=== PATIENT | female | born 2005 | race Two or more races ===

== ENCOUNTER 2025-02-25 20:30 | Emergency (ER) | payer MEDICAID, SELFPAY ==
[2025-02-25 20:32] VITALS: BMI 21.9
--- NOTE | 2025-02-25 20:36 | EKG_ITS ---
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
[2025-02-25 20:53] VITALS: BP 127/82; PULSE 104; RESP 16; TEMP 36.6; O2SAT 96
--- NOTE | 2025-02-25 20:57 | PD.EDRME ---
Rapid Medical Screening Exam RME Arrival date/time: 02/25/25 20:30 Chief Complaint: Chest Pain Time Seen by Provider: 02/25/25 20:33 Vital signs: Vital Signs Temperature 97.9 F 02/25/25 20:53 Pulse Rate 104 H 02/25/25 20:53 Respiratory Rate 16 02/25/25 20:53 Blood Pressure 127/82 02/25/25 20:53 Pulse Oximetry (%) 96 02/25/25 20:53 Oxygen Delivery Method Room Air 02/25/25 20:53 E Narrative: Chest pain and shortness of breath since 1800 tonight. Patient believes symptoms related to new epilepsy medication, she doubled the dose 2 days ago. Reports nausea no vomiting. Takes OCP
--- NOTE | 2025-02-25 20:58 | XR_ITS ---
Examination: PA chest single view TECHNIQUE: Upright PA chest single view Date and time: February 25, 2025, 2106 hours INDICATIONS: Chest pain shortness of breath beginning 1800 hours tonight FINDINGS: Normal heart size Lungs are clear. The osseous structures are intact. IMPRESSION: No active disease.
[2025-02-25 21:17] LABS: Basophils % (Auto) 0 % (0-2.5); Eosinophils # (Auto) 0.1 Thou/mm3 (0.0-0.5); Eosinophils % (Auto) 1 % (0-10); Hematocrit 40.1 % (36.0-46.0); Hemoglobin 14.1 g/dL (12.0-16.0); Immature Granulocytes % (Auto) 0 % (0-0); Immature Granulocytes Auto 0.04 Thou/mm3 (0.00-0.00); Lymphocytes # (Auto) 1.2 Thou/mm3 (1.0-4.8); Lymphocytes % (Auto) 12 % (10-50); Mean Corpuscular HGB Conc 35.2 g/dl (31.0-37.0); Mean Corpuscular Hemoglobin 30.5 pg (25.0-35.0); Mean Corpuscular Volume 87 fL (80-100); Monocytes # (Auto) 0.7 Thou/mm3 (0.0-0.8); Monocytes % (Auto) 7 % (0-12); Neutrophils # (Auto) 7.9 Thou/mm3 (1.8-7.7); Neutrophils % (Auto) 80 % (37-80); Nucleated Red Blood Cell % 0 /100 WBC (0); Platelet Count 291 Thou/mm3 (140-440); RDW Standard Deviation 39.7 fL (36.4-46.3); Red Blood Count 4.63 Miln/mm3 (4.00-5.20); White Blood Count 9.9 Thou/mm3 (3.6-11.0)
[2025-02-25] MEDS: IBUPROFEN TAB 600 MG TABLET PO (21:30)
[2025-02-25 21:32] LABS: HCG,Qualitative Serum Negative
[2025-02-25 21:35] LABS: B-Type Natriuretic Peptide < 20 pg/mL (0-100)
[2025-02-25 21:36] LABS: Alanine Aminotransferase 11 U/L (10-49); Albumin, Serum 5.2 gm/dL (3.5-5.0); Albumin/Globulin Ratio 2.2 (1.2-2.2); Alkaline Phosphatase 81 U/L (46-116); Anion Gap 9 (7-16); Aspartate Amino Transferase 20 U/L (0-34); BUN/Creatinine Ratio 6 Ratio (12-20); Bilirubin,Total 0.5 mg/dL (0.3-1.2); Blood Urea Nitrogen 6 mg/dL (9-23); Calcium 9.7 mg/dL (8.3-10.6); Calcium (Corrected) 9.7 mg/dL (8.5-10.1); Carbon Dioxide 22.6 mMol/L (20.0-31.0); Chloride 104 mMol/L (98-107); Estimated Creatinine Clearance 80.1 mL/min (>60); Globulin 2.4 gm/dL (2.3-3.5); Glucose 108 mg/dL (74-106); Osmolality,Calculated 270 (275-295); Potassium 3.9 mMol/L (3.4-5.1); Sodium 136 mMol/L (136-145); Total Protein 7.6 gm/dL (5.7-8.2); Troponin I < 0.002 ng/mL (0.0-0.045); eGFR > 60 See Note
[2025-02-25 23:59] LABS: D-Dimer < 250 ng/mL (<600)
--- NOTE | 2025-02-26 00:10 | PD.EDCHEST ---
ED Chest Pain RME/HPI General Chief Complaint: Chest Pain Stated Complaint: I THINK I'M HAVING A ALLERGIC REACTION, CHEST PAIN Time Seen by Provider: 02/25/25 20:33 Source: patient, family, RN notes reviewed and old records reviewed Arrival date/time: 02/25/25 20:30 Mode of arrival: ambulatory Limitations: no limitations RME / HPI RME / HPI narrative: 20yof presents to ED for chest pain and shortness of breath since 1800 tonight. Patient believes symptoms are a reaction to her new epilepsy medication, she increased the dose 2 days ago. Reports nausea no vomiting. No fever, cough, headache, dizziness or syncope. 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 Denies recent long travel or recent surgery. Takes daily OCP. Related Data Home Medications ?Medication ?Instructions ?Recorded ?Confirmed No Known Home Medications 10/26/18 10/26/18 Allergies Allergy/AdvReac Type Severity Reaction Status Date / Time No Known Allergies Allergy Verified 02/25/25 20:32 Review of Systems Review of Systems Systems Reviewed: All systems reviewed, normal except as documented Constitutional Constitutional: Denies chills, Denies fever(s) and Denies headache(s) ENT Ears, Nose, Mouth, and Throat: Denies headache(s), Denies throat swelling, Denies tongue swelling and Denies vertigo Cardiovascular Cardiovascular: Reports chest pain, Reports dyspnea and Denies syncope Respiratory Respiratory: Reports dyspnea Gastrointestinal Gastrointestinal: Denies nausea and Denies vomiting Neurologic Neurologic: Denies headache(s), Denies syncope and Denies vertigo Allergic/Immunologic Allergic/Immunologic: Denies throat swelling and Denies tongue swelling Past Medical History Past Medical History NEUROLOGIC: Positive Epilepsy Surgical History OTHER SURGICAL HX: denies pshx Social History SMOKING STATUS: Never smoker SUBSTANCE USE: does not use ALCOHOL: Never ED Exam General Limitations: Present no limitations General appearance: Present alert and in no apparent distress Head Head exam: Present atraumatic and normocephalic Eye Eye exam: Present normal appearance, PERRL and EOMI ENT ENT exam: Present normal exam and mucous membranes moist Neck Neck exam: Present normal inspection and full ROM Chest Chest inspection: Present normal inspection and symmetric chest wall rise Cardiovascular Cardiovascular exam: Present normal rhythm and tachycardia (mild, HR 104) Abdominal Exam Abdominal exam: Present soft; Absent distention or tenderness Extremities Exam Extremities exam: Present normal inspection and full ROM; Absent pedal edema Neurological Exam Neurological exam: Present alert and oriented X3 Psychiatric Psychiatric exam: Present normal affect and normal mood Skin Skin exam: Present warm, dry, intact and normal color Course Quality Measures none Orders Category Date Time Status EKG (ED ONLY) *Do not use* NOW Care 02/25/25 20:36 Completed CXR [XR chest 1V] Stat Exams 02/25/25 20:58 Completed EKG (ED Only) Stat Exams 02/25/25 20:36 Draft BNP [B-Type Natriuretic Peptide] Stat Lab 02/25/25 21:03 Completed CBC Stat Lab 02/25/25 21:03 Completed CMP [Comprehensive Metabolic Panel] Stat Lab 02/25/25 21:03 Completed D-Dimer Stat Lab 02/25/25 21:03 Completed HCG,Qualitative Serum Stat Lab 02/25/25 21:03 Completed Troponin I Stat Lab 02/25/25 21:03 Completed Ibuprofen Tab [Motrin Tab] Med 02/25/25 21:09 Discontinued 600 mg PO X1 ONE Vital Signs Vital signs: Vital Signs Temperature 97.9 F 02/25/25 20:53 Pulse Rate 104 H 02/25/25 20:53 Respiratory Rate 16 02/25/25 20:53 Blood Pressure 127/82 02/25/25 20:53 Pulse Oximetry (%) 96 02/25/25 20:53 Oxygen Delivery Method Room Air 02/25/25 20:53 PROCEDURES: EKG Interpretation #1: Date of EK02/25/25 Rate: 107 Interpretation: Interpreted by me EKG Impression: No acute ST-T changes, No ectopy, No ischemic changes, Sinus tachycardia, Normal QRS, Normal intervals and Normal axis Additional EKG comment: No stemi. Non-specific t-wave changes. Chest Pain MDM Narrative MDM Narrative:: 20yof presents to ED for chest pain and shortness of breath since 1800 tonight. Patient believes symptoms are a reaction to her new epilepsy medication, she increased the dose 2 days ago. Reports nausea no vomiting. No fever, cough, headache, dizziness or syncope. 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 Denies recent long travel or recent surgery. Takes daily OCP. Patient reassessed. Symptoms have resolved during ED visit, she is feeling significantly better. ED workup reassuring. Negative ddimer. Heart score is 0. Symptoms possible side effects of epilepy medication. Recommended returning to prior lower dose until f/u with neurology. Patient comfortable with plan of care and dc home. RTED precautions given. Patient data External records reviewed:: [facility] previous records (10/26/18 ED visit for new onset seizure) Clinical information provided by:: patient and parent Social determinants that could affect healthcare access:: none Patient has the following chronic illnesses:: epilepsy How is presenting disease/condition affected by chronic disease/condition?: exacerbated by Evaluation data The following diagnostics were reviewed and interpreted by me:: lab results, radiology exam(s) and EKG tracing(s) Lab and/or radiology exams considered but not ordered:: CTA chest: do not suspect PE Interpretation Summary: CXR: no acute process per my read Negative ddimer Negative trop No anemia No leukocytosis Medications / Prescriptions Medications or Prescriptions considered but not ordered:: no antibiotics recommended at this time Medication administrations:: Medication Administration History Discontinued Medications Ibuprofen (Ibuprofen Tab 600 Mg Tablet) 600 mg PO X1 ONE Stop: 02/25/25 21:10 Last Admin: 02/25/25 21:30 Dose: 600 mg Documented By: EF above medication adminsitered in ED Consultations Consultation(s) initiated? (list below): No Diagnosis Chest Pain Differential Diagnosis: other (chest pain, costochondritis, pneumothorax, PE, pleurisy, drug reaction) Most likely diagnosis given after review of the tests above:: chest pain Admission Indicated Admission indicated?: not indicated Admission Request Was there a request for admission?: No Disposition Plan Disposition Plan: Discharge Discharge Attestation Discharge Attestation: The patient and all family members were given an opportunity to ask questions and understood the discharge instructions. Discharge instructions specifically effects, indications for sooner follow up or return to the emergency department, and the expected course of current diagnosis. Patient condition: Stable Discharge Plan Plan Patient Disposition: HOME (Self Care) Patient condition on transfer: Stable Prescriptions/Referrals Prescriptions/Med Rec: No Action No Known Home Medications Referrals: No Primary/Family,Physician [Primary Care Provider] - In 1 week Problem List Clinical Impression: Chest pain Patient/Caregiver Discharge Instructions Education Materials: ED Chest Pain, Uncertain Cause Additional Instructions: Please closely follow-up with your neurologist for your epilepsy medication. Print Language: Kazakh Stand Alone Forms: Jeri Award Info., Patient Portal Info Letter PA/CONTROL SYSTEMS DRAFTING OFFICER Supervising Physician PA/CONTROL SYSTEMS DRAFTING OFFICER Supervising Physician: Jabari
== END 2025-02-26 00:23 | disposition home or self-care (01) ==
PROVIDERS: Physician Assistant; Emergency Provider Emergency Medicine
DX: R07.9 Chest pain, unspecified (principal); R06.02 Shortness of breath; R94.31 Abnormal electrocardiogram [ECG] [EKG]; R00.0 Tachycardia, unspecified
CPT/HCPCS: 36415; 71045; 80053; 83880; 84484; 84703; 85025; 85379; 93005; 99283; A9270